=== PATIENT | female | born 1960 | race Caucasian/White ===

== ENCOUNTER 2019-01-05 15:06 | Outpatient (CLI) | payer OTHER ==
--- NOTE | 2019-01-06 10:24 | Diagnostic Imaging Report ---
PATIENT MR#: [id number] PATIENT PATIENT NAME: JAVI SINGLETON DATE OF : 1960 REFERRING PHYSICIAN: Yoly Tilley EXAM DATE: 01/05/2019 ACCESSION NUMBER: [id number] EXAM DESCRIPTION: US ABDOMEN LIMITED CLINICAL HISTORY: LUMP ON BACK BEGAN A FEW MONTHS AGO. TECHNIQUE: US soft tissue, posterior abdomen Focused ultrasound was performed in the region of concern in the left lower back. No cystic or solid masses were identified by the cardiac technologist. IMPRESSION: No masses or fluid collections in the region of concern. This does not exclude etiologies such as muscular strain or spasm. Read by: Dr. Gurwinder Lujan Transcribed by: Gurwinder Lujan Transcribed Date: 01/06/2019 10:23:54 AM Electronically signed by: Dr. Gurwinder Lujan Date signed: 01/06/2019 10:23:54 AM
== END 2019-01-05 15:16 ==
LOC: RAD 15:06
PROVIDERS: ATTEND Nurse Practitioner Family
DX: R22.2 Localized swelling, mass and lump, trunk (principal)
CPT/HCPCS: 76705